=== PATIENT | male | born 1960 | race Caucasian/White ===

== ENCOUNTER 2024-08-27 09:44 | Day surgery (SDC) | payer MEDICARE ==
[~2024-08-27] VITALS: Ht 175.3 cm; Wt 122.1 kg
[~2024-08-27 09:44] MED LIST: ALLO100T PO; ATOR1TAB19 PO; LEVO100T5 PO; LEVO112T2 PO; LR 1,000 ML IV SCH; METO1TAB32 PO; MIDAZOLAM INJ 2MG/2ML VIAL As Ordered ONE; OMEP-173 PO; fentaNYL 100 MCG/2 ML INJECTION As Ordered ONE
[2024-08-27] MEDS: FLURBIPROFEN 0.03% OPHTH SOLN 2.5 ML OS SCH (11:45)
[2024-08-27] MEDS: CYCLOPENTOLATE 1% OPHTH SOLN 2ML BTL OS SCH (11:45)
[2024-08-27] MEDS: PHENYLEPHRINE 2.5% OPHTH SOL 2ML OS SCH (11:45)
[2024-08-27] MEDS: TETRACAINE 0.5% OPHTH SOLN 4ML OS SCH (11:45)
[2024-08-27] MEDS: LIDOCAINE 1% SDV 5ML VIAL As Ordered ONE (12:29)
[2024-08-27] MEDS: CEFUROXIME 1MG/0.1ML INTRACAMERAL INJ As Ordered ONE (12:30)
[2024-08-27] MEDS: TRYPAN BLUE 0.06 % 2.25 ML OPHTH SYR (VISIONBLUE) As Ordered ONE (12:52)
[2024-08-27 13:10] VITALS: BP 145/81; TEMP 97.9; O2SAT 95
== END 2024-08-27 13:58 | disposition home or self-care (01) ==
LOC: M SDC 09:44
PROVIDERS: ATTEND Ophthalmology
DX: H25.12 Age-related nuclear cataract, left eye (principal); I25.10 Atherosclerotic heart disease of native coronary artery without angina pectoris; I10 Essential (primary) hypertension; E03.9 Hypothyroidism, unspecified; M10.9 Gout, unspecified; G47.30 Sleep apnea, unspecified; Z79.899 Other long term (current) drug therapy; Z79.890 Hormone replacement therapy
CPT/HCPCS: 66984; J0697; J2250; J3010; V2632

== ENCOUNTER 2024-10-01 11:23 | Day surgery (SDC) | payer MEDICARE ==
[~2024-10-01] VITALS: Ht 175.3 cm; Wt 122.0 kg
[~2024-10-01 11:23] MED LIST changes: +CYCLOPENTOLATE 1% OPHTH SOLN 2ML BTL OD SCH; +FLURBIPROFEN 0.03% OPHTH SOLN 2.5 ML OD SCH; -MIDAZOLAM INJ 2MG/2ML VIAL As Ordered ONE; +PHENYLEPHRINE 2.5% OPHTH SOL 2ML OD SCH; +TETRACAINE 0.5% OPHTH SOLN 4ML OD SCH; -fentaNYL 100 MCG/2 ML INJECTION As Ordered ONE
[2024-10-01] MEDS ORDERED: fentaNYL 100 MCG/2 ML INJECTION As Ordered ONE (13:33)
[2024-10-01] MEDS ORDERED: MIDAZOLAM INJ 2MG/2ML VIAL As Ordered ONE (13:33)
[2024-10-01] MEDS: LIDOCAINE 1% SDV 5ML VIAL As Ordered ONE (14:43)
[2024-10-01] MEDS: CEFUROXIME 1MG/0.1ML INTRACAMERAL INJ As Ordered ONE (14:44)
[2024-10-01 15:06] VITALS: BP 101/59; TEMP 98.2; O2SAT 96
== END 2024-10-01 15:22 | disposition home or self-care (01) ==
LOC: M SDC 11:23
PROVIDERS: ATTEND Ophthalmology
DX: H25.9 Unspecified age-related cataract (principal); I25.10 Atherosclerotic heart disease of native coronary artery without angina pectoris; I10 Essential (primary) hypertension; G47.30 Sleep apnea, unspecified; Z79.899 Other long term (current) drug therapy; Z98.42 Cataract extraction status, left eye; Z87.891 Personal history of nicotine dependence
CPT/HCPCS: 66984; J0697; J2250; J3010; V2632